=== PATIENT | female | born 1980 | race African-American/Black ===

== ENCOUNTER 2017-03-31 05:00 | Emergency (ER) | payer SELFPAY ==
[2017-03-31] MEDS ORDERED: ACETAMINOPHEN 500MG TABLET ONE (06:41)
[2017-03-31] MEDS ORDERED: SODIUM CHLORIDE 0.9% 1,000 ML IV ONE (07:29)
[2017-03-31] MEDS ORDERED: ACETAMINOPHEN 325MG TABLET PO ONE (07:30)
[2017-03-31] MEDS ORDERED: DEXAMETHASONE 10MG/ML 1ML VIAL IV ONE (07:30)
[2017-03-31] MEDS ORDERED: CEFTRIAXONE 1 G PREMIX 50 ML IV ONE (07:30)
[2017-03-31 07:43] LABS: BASOPHILS % 0.5 % (0.0-2.0); EOSINOPHILS % 0.1 % (0.0-5.0); HEMATOCRIT. 42.9 % (36.0-48.0); HEMOGLOBIN. 14.2 g/dL (12.0-16.0); LYMPHOCYTES % 10.5 % (20.0-50.0); MEAN CORPUSCULAR HEMOGLOBIN 24.7 pg (28.0-32.0); MEAN CORPUSCULAR VOLUME 74.6 fL (81.0-99.0); MONOCYTES % 7.1 % (2.0-8.0); NEUTROPHILS % 81.8 % (40.0-76.0); PLATELET 226 x1000/uL (130-400); RED BLOOD CELL COUNT 5.75 mill/uL (4.2-5.4); RED CELL DISTRIBUTION WIDTH 13.8 % (11.6-14.6)
[2017-03-31 07:51] LABS: CARBON DIOXIDE 23 mEq/L (21-32); CHLORIDE 104 mEq/L (98-107)
[2017-03-31 08:02] LABS: HCG SCREEN NEGATIVE
[2017-03-31 08:41] VITALS: BP 102/51
[2017-03-31] MEDS ORDERED: POTASSIUM CHLORIDE 10MEQ TABLET SR PO ONE (08:45)
== END 2017-03-31 09:43 | disposition home or self-care (01) ==
LOC: ER 05:00
DX: J02.9 Acute pharyngitis, unspecified (principal); Z88.6 Allergy status to analgesic agent
CPT/HCPCS: 36415; 80048; 84703; 85025; 87040; 96365; 96375; 99285; J0696; J1100; J7030; Z7610